=== PATIENT | female | born 2000 | race Caucasian/White ===

== ENCOUNTER 2022-03-10 10:08 | Emergency (ER) | payer SELFPAY ==
[~2022-03-10] VITALS: Ht 177.8 cm; Wt 90.7 kg
[2022-03-10 10:12] VITALS: BP 129/72
--- NOTE | 2022-03-10 10:15 | NUR ---
BIBS W/ C/O R THIGH RASH x 6 DAYS. PT STATES "MIGHT BE A BUG BITE, ABOUT THE SAME SIZE SINCE I NOTICED. ALSO ITCHY".
[2022-03-10] MEDS ORDERED: DOXY100T2 PO (10:22)
--- NOTE | 2022-03-10 10:25 | NUR ---
DR BARGER W/ PT FOR EVAL
--- NOTE | 2022-03-10 10:39 | NUR ---
Patient discharged to home in stable condition. Written and verbal after care instructions given. Patient verbalizes understanding of instruction.
== END 2022-03-10 10:40 | disposition home or self-care (01) ==
LOC: ER 10:27
DX: A26.0 Cutaneous erysipeloid (principal); R21 Rash and other nonspecific skin eruption